=== PATIENT | male | born 2000 | race Caucasian/White ===

== ENCOUNTER 2021-02-07 19:23 | Emergency (ER) | payer BC ==
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
== END 2021-02-07 22:20 | disposition home or self-care (01) ==
LOC: JD.ED 19:23
DX: T23.242A Burn of second degree of multiple left fingers (nail), including thumb, initial encounter (principal); T22.10XA Burn of first degree of shoulder and upper limb, except wrist and hand, unspecified site, initial encounter; Z72.0 Tobacco use; X10.2XXA Contact with fats and cooking oils, initial encounter
CPT/HCPCS: 16000; 99283-25

== ENCOUNTER 2025-02-11 23:02 | Emergency (ER) | payer SELFPAY | END 2025-02-12 01:54 | disposition home or self-care (01) | LOC: JD.ED 23:02 | DX: L03.115 Cellulitis of right lower limb (principal); Z79.899 Other long term (current) drug therapy | CPT/HCPCS: 76881-26-RT; 76881-RT; 99283; 99284; A9270-GY ==